=== PATIENT | female | born 1945 | race Two or more races ===

== ENCOUNTER 2025-01-10 13:40 | Emergency (ER) | payer OTHER ==
[~2025-01-10] VITALS: Ht 165.1 cm; Wt 56.7 kg
[2025-01-10] MEDS ORDERED: SYNTHROID75 MCG PO (15:45)
[2025-01-10] MEDS ORDERED: PEPCID20 MG PO (15:47)
[2025-01-10] MEDS ORDERED: ALPRAZOLAM ODT1 MG (15:47)
[2025-01-10] MEDS ORDERED: ZETIA10 MG (15:48)
[2025-01-10] MEDS ORDERED: PROTONIX40 M1 (15:48)
[2025-01-10] MEDS ORDERED: ONDANSETRON HCL 2 MG/ML VIAL IV STA (16:02)
[2025-01-10] MEDS ORDERED: MORPHINE SULFATE 2 MG/ML SYRINGE IV STA (16:02)
[2025-01-10] MEDS ORDERED: DICYCLOMINE HCL 20 MG TABLET PO STA (16:02)
[2025-01-10] MEDS ORDERED: FAMOtidine 10 MG/ML (4ML VIAL) IV STA (16:02)
[2025-01-10] MEDS ORDERED: 0.9 % SODIUM CHLORIDE 1,000 ML IV STA (16:03)
[2025-01-10] MEDS ORDERED: ONDANSETRON HCL 2 MG/ML VIAL ONE (16:05)
[2025-01-10] MEDS ORDERED: FAMOTIDINE/PF 20 MG/2 ML VIAL ONE (16:05)
[2025-01-10] MEDS ORDERED: DICYCLOMINE HCL 10 MG CAPSULE PO ONE (16:05)
[2025-01-10 16:49] LABS: BASO % 0.5 % (0.1-1.2); EOS # 0.01 (0.04-0.54); EOS % 0.1 % (0.7-7.0); LYMPH # 1.78 (1.18-3.74); LYMPH % 18.9 % (19.3-53.1); MEAN PLATELET VOLUME 8.60 fl (9.4-12.4); MONO # 0.38 (0.24-0.82); MONO % 4.0 % (4.7-12.5); NEUT # 7.18 (1.56-6.13); NEUT % 76.2 % (34.0-71.1); RED CELL DISTRIBUTION WIDTH 12.1 % (11.6-14.4)
[2025-01-10] MEDS ORDERED: MORPHINE SULFATE 4 MG/ML VIAL IV ONE (17:15)
[2025-01-10 17:26] LABS: ALT/SGPT 27.0 U/L (12-78); AST/SGOT 19.0 U/L (15-37); BILIRUBIN TOTAL 1.09 mg/dL (0.3-1.2); BUN CREA RATIO 15.0 (7.0-25.0); CREATININE SERUM 0.68 mg/dL (0.55-1.02); GFR 83.68; GLOBULINA 4.4 G/DL (2.4-3.5); GLUCOSE FASTING 114.0 mg/dL (65-100); OSMOLALITY SERUM 276.0 MOSM/KG (275-295)
[2025-01-10] MEDS ORDERED: PANTOPRAZOLE SODIUM 40 MG/VIAL VIAL IV STA (20:50)
[2025-01-10] MEDS ORDERED: KETOROLAC TROMETHAMINE 15 MG VIAL IM STA (20:50)
[2025-01-10] MEDS ORDERED: KETOROLAC TROMETHAMINE 30 MG VIAL ONE (21:13)
[2025-01-10 21:23] LABS: URINE APPEARANCE Cloudy; URINE BILIRRUBIN Negative (NEGATIVE); URINE BLOOD NHT; URINE COLOR Yellow; URINE GLUCOSE Negative (NEGATIVE); URINE KETONE 15 (NEGATIVE); URINE LEUKOCYTE Negative; URINE NITRATE Negative; URINE PROTEIN Trace (NEGATIVE); URINE UROBILINOGEN 1.0 E.U./dl
[2025-01-10 21:28] LABS: URINE BACTERIA 82.3 uL (0.0-1933); URINE EPITHELIAL CELLS 3.8 uL (0.0-38.8); URINE RBC 90.5 uL (0.0-20.8); URINE WBC 3.5 uL (0.0-23.2)
[2025-01-10 21:29] LABS: URINE CAST 0.00 uL (0.0-1.40)
[2025-01-10] MEDS ORDERED: METOCLOPRAMIDE HCL 5 MG/ML VIAL IM STA (21:59)
[2025-01-10] MEDS ORDERED: LIDOCAINE HCL VISCOUS 20MG/ML BLIST 15ML MM STA (22:00)
[2025-01-10] MEDS ORDERED: MAG HYDROX/ALUMINUM HYD/SIMETH 30 ML BLIST.PACK PO STA (22:00)
[2025-01-10] MEDS ORDERED: MAG HYDROX/ALUMINUM HYD/SIMETH 30 ML BLIST.PACK PO ONE (22:46)
[2025-01-10] MEDS ORDERED: METOCLOPRAMIDE HCL 5 MG/ML VIAL ONE (22:46)
[2025-01-10] MEDS ORDERED: LIDOCAINE HCL VISCOUS 20MG/ML BLIST 15ML MM ONE (22:46)
[2025-01-11] MEDS ORDERED: ZOFRAN8 MG PO (01:37)
[2025-01-11] MEDS ORDERED: INTESTINEX680 M1 PO (01:37)
[2025-01-11] MEDS ORDERED: LEVSIN/SL0.125 MG SL (01:37)
== END 2025-01-11 02:13 ==
LOC: ER 13:41
PROVIDERS: General Practice
DX: A08.8 Other specified intestinal infections (principal); R11.10 Vomiting, unspecified; R10.9 Unspecified abdominal pain; I10 Essential (primary) hypertension; E03.8 Other specified hypothyroidism
CPT/HCPCS: 36415; 71045; 74177; 93005; Q9965